=== PATIENT | male | born 1950 | race Caucasian/White ===

== ENCOUNTER → 2018-01-15 | Outpatient (CLI) | payer MEDICARE ==
--- NOTE | 2018-01-15 15:41 | SFUN ---
SLEEP CENTER FOLLOW UP NOTE DATE OF SERVICE: 01/15/2018. 67-year-old gentleman has been followed in the Sleep Center for treatment of obstructive sleep apnea-hypopnea syndrome. The patient successfully continued to use his CPAP equipment every night for the whole night without any significant problems related to mask fitting, pressure and humidification. [place] Sleepiness Scale today is 3. I checked the patient's CPAP unit. Pressure at the same 13 cm of water. Usage 29/30 nights for more than 4 hours, average 7.9 hours. Mask fitted 99%. Apnea-hypopnea index reading only 1.4, which is perfect. MEDICATIONS: Amlodipine, clonazepam, tamsulosin, Enbrel injections, Cialis, oxybutynin. PHYSICAL EXAM: GENERAL Patient in no distress. VITAL SIGNS BP 122/73, HR 60, RR 16, height 5 feet 10 inches, weight 208 pounds which is 24 pounds less than during the previous visit, BMI 29, temperature 98.1, oxygen saturation room air 94%. HEENT PERRLA, EOMI, evaluation of oropharynx showed moderately low position of soft palate. NECK Supple, no JVD. Thyroid is not palpable. LUNGS Clear to percussion and to auscultation. Good air exchange. No wheezing or rhonchi. HEART S1, S2 regular. No murmurs, gallops, or rubs. ABDOMEN Soft and nontender. Bowel sounds are present. No organomegaly appreciated. EXTREMITIES No clubbing or cyanosis. TUBE STATION ATTENDANT Awake, alert, and oriented X3. Cranial nerves 2 to 7 intact. There is no fasciculation or atrophy. noted. No focal deficits observed. IMPRESSION: 1. Obstructive sleep apnea-hypopnea syndrome. The patient demonstrated practically 100% compliance with treatment benefitting from treatment, normal respiration on CPAP. 2. The patient has lost about 24 pounds. Overweight, but no obesity as before. 3. Hyperlipidemia. 4. Hypertension. 5. History of prostate carcinoma, status post radiation treatment in the past. 6. Status post back surgery. 7. Status post neck surgery. 8. Status post total right hip replacement. 9. Status post left knee replacement. PLAN: 1. Will maintain prescription for all necessary CPAP supplies including mask, tube, filters. 2. Sleep hygiene with time bed for at least 8 hours. 3. No driving if feeling sleepiness. 4. Followup visit in 1 year or earlier if patient has any problems. Thank you very much for allowing me to participate in management of your patient. Sincerely, Jacob Martines MD, PhD, FAASM Diplomat of [place] [employer] [place] [employer] [place] MMODL / MAYI: [id number] /
== END | disposition home or self-care (01) ==
LOC: SLEEP 13:14
PROVIDERS: ATTEND Internal Medicine
DX: G47.33 Obstructive sleep apnea (adult) (pediatric) (principal); E66.3 Overweight; E78.5 Hyperlipidemia, unspecified; I10 Essential (primary) hypertension; C61 Malignant neoplasm of prostate; Z98.890 Other specified postprocedural states; Z96.652 Presence of left artificial knee joint; Z96.641 Presence of right artificial hip joint; Z92.3 Personal history of irradiation; Z99.89 Dependence on other enabling machines and devices; Z79.899 Other long term (current) drug therapy

== ENCOUNTER → 2019-01-28 | Outpatient (CLI) | payer MEDICARE ==
--- NOTE | 2019-01-28 14:24 | SFUN ---
SLEEP CENTER FOLLOW UP NOTE DATE OF SERVICE: 01/28/2019 A 68-year-old gentleman who has been followed in the Sleep Center for treatment of obstructive sleep apnea-hypopnea syndrome. Patient successfully continuing to use his CPAP equipment every night for the whole night. He lost about 40 pounds since last visit, pressure has been reduced to 11 cm of water. No snoring with the machine. Patient getting his CPAP supplies in time. I checked his CPAP unit. Usage is every night for the whole night more than 4 hours every night. Average usage 8 hours per night, mask fit 100%. Periodic breathing 0%, apnea-hypopnea index 1, which is normal. [place] Sleepiness Scale is 5. MEDICATIONS: Clonazepam, tamsulosin, Enbrel injections, , oxybutynin. PHYSICAL EXAM: Patient in no distress, BP 147/83, HR 64, RR 16, height 5, 11, weight 215 pounds. Body mass index 29.9, temperature 98.1 oxygen saturation at room air 95% on room. OROPHARYNX: Low position of soft palate, Mallampati 3. Neck Supple, no JVD. Thyroid is not palpable. LUNGS Clear to percussion and to auscultation. Good air exchange. No wheezing or rhonchi. HEART S1, S2 regular. No murmurs, gallops, or rubs. ABDOMEN Soft and nontender. Bowel sounds are present. No organomegaly appreciated. EXTREMITIES No clubbing or cyanosis. ENDODONTIC ASSISTANT Awake, alert, and oriented X3. Cranial nerves 2 to 7 intact. There is no fasciculation or atrophy. noted. No focal deficits observed. IMPRESSION: 1. Obstructive sleep apnea-hypopnea syndrome. Patient demonstrated 100% compliance with treatment benefitting from treatment. 2. Hyperlipidemia. 3. Hypertension. 4. History of prostate carcinoma, status post radiation treatment in the past. 5. Status post back surgery. 6. Status post neck surgery. 7. Status post right total hip replacement. 8. Status post left knee replacement. PLAN: 1. Patient will continue to use CPAP equipment every night for the whole night. 2. Sleep hygiene and on bed for at least 8 hours of sleep. No driving if feeling sleepiness. 3. Prescription for all necessary CPAP supplies including mask, tube, filters. 4. Follow-up visit in 1 year or earlier if any problems. Thank you very much for allowing me to participate in the management of patient. Sincerely, Jacob Martines MD, PhD, FAASM Diplomat of [employer] [employer] [employer] [facility] [place] MMODKaiden / MAYI: [id number] /
== END | disposition home or self-care (01) ==
LOC: SLEEP 13:10
PROVIDERS: ATTEND Internal Medicine
DX: G47.33 Obstructive sleep apnea (adult) (pediatric) (principal); E78.5 Hyperlipidemia, unspecified; I10 Essential (primary) hypertension; Z99.89 Dependence on other enabling machines and devices; Z79.899 Other long term (current) drug therapy; Z98.890 Other specified postprocedural states; Z96.641 Presence of right artificial hip joint; Z96.652 Presence of left artificial knee joint; Z85.46 Personal history of malignant neoplasm of prostate; Z92.3 Personal history of irradiation